=== PATIENT | male | born 1960 | race Caucasian/White ===

== ENCOUNTER 2025-05-13 15:14 | Outpatient (REF) | payer MEDICARE, SELFPAY ==
--- OUTSIDE RECORDS SUMMARY | 2025-05-13 15:19 | XMS_ITS | Clinical Summary ---
Author Organization [facility] Address [address] [place] [address] Care Team Providers Care Dispatcher Tugboat Name Role Phone Byron Santana MD Primary Care Provider [phone] Allergies Active Allergy Reactions Criticality Noted Date Comments Pravastatin 05/16/2021 Medications Medication Sig Dispensed Refills Start Date End Date Status metFORMIN (GLUCOPHAGE) tablet 1000 mg Take 1,000 mg by mouth 2 (two) times a day with meals. 0 Active atorvastatin (LIPITOR) tablet 10 mg Take 10 mg by mouth every evening. 0 Active ferrous sulfate 325 (65 FE) MG tablet Take 325 mg by mouth every morning with breakfast. 0 Active lisinopril (PRINIVIL,ZESTRIL) tablet 2.5 mg Take 2.5 mg by mouth daily. 0 Active glipiZIDE (GLUCOTROL XL) ER 24 hr tablet 10 mg Take 10 mg by mouth daily. 0 Active dulaglutide (TRULICITY) 1.5 MG/0.5ML subcutaneous pen-injector Inject 1.5 mg under the skin every 7 days. 0 Active aspirin EC 81 MG tablet Take 81 mg by mouth daily. 0 Active Active Problems Problem Noted Date Diagnosed Date Stage 3a chronic kidney disease 05/18/2021 Iron deficiency anemia due to chronic blood loss 08/30/2020 Nuclear sclerosis 08/12/2014 Overview: Taken from note of Dr. Wilson on 11/18/2012. Diabetes mellitus with renal complications 03/07 Overview: DP & PT pulses found by Dopplers 09/14/14 Urolithiasis 08/02/2011 Overview: Shaker; Calcium Oxalate, 07/24 Hypertriglyceridemia 09/22/2008 Tobacco use disorder 07/15/2007 Sleep apnea 10/19/2005 Overview: IMO update Family History Medical History Relation Name Comments Stroke Father Cancer Maternal Grandmother Diabetes Mother Heart failure Mother Kidney failure Mother Relation Name Status Comments Father (Age 84) Maternal Grandmother Mother (Age 93) Social History Tobacco Use Types Packs/Day Years Used Date Smoking Tobacco: Every Day Cigarettes 0.8 47 Smokeless Tobacco: Never Alcohol Use Standard Drinks/Week Comments Yes 0 (1 standard drink = 0.6 oz pur e alcohol) rarely Sex and Gender Information Value Date Recorded Sex Assigned at Not on file Gender Identity Not on file Sexual Orientation Not on file Job Start Date Occupation Industry Not on file Not on file Not on file Last Filed Vital Signs Vital Sign Reading Time Taken Comments Blood Pressure 119/90 08/28/2022 10:38 AM EST Pulse 71 08/28/2022 10:38 AM EST Temperature 36.4 C (97.5 F) 08/28/2022 10:38 AM EST Respiratory Rate - - Oxygen Saturation 99% 08/28/2022 10:38 AM EST Inhaled Oxygen Concentration - - Weight 83.6 kg (184 lb 3.2 oz) 08/28/2022 10:38 AM EST Height 177.8 cm (5' 10 ) 08/28/2022 10:38 AM EST Body Mass Index 26.43 08/28/2022 10:38 AM EST Plan of Treatment Health Maintenance Due Date Last Done Comments Hepatitis C Screening 1960 Lung Cancer Screening (Low Dose CT) 1958 COVID-19 Vaccine (#1) 05/13/1959 Depression Screening 1970 Preventative Health Evaluation 1976 Pneumococcal Vaccine (2 of 2 - PCV) 10/15/2003 10/15/2002 Colon Cancer Screening (Colonoscopy) 2003 Shingrix-Zoster Vaccine (1 of 2) 2008 DTap / Tdap / Td (2 - Td or Tdap) 07/15/2017 07/15/2007 Fall Risk Assessment 2023 Influenza Vaccine (#1) 2025 2, 10/27/2020, 12/16/2019, Additional history exists RSV Adult > 60+ Yrs or (1 - 1-dose 75+ series) 2033 Hepatitis B Vaccines Aged Out No long er eligible based on patient's age to complete this topic RSV Ped < 20 months Aged Out No longe r eligible based on patient's age to complete this topic Care Teams Dispatcher Tugboat Relationship Specialty Start Date End Date Byron Santana MD [address] [place] [id number] PCP - General Internal Medicine 05/18/21
--- OUTSIDE RECORDS SUMMARY | 2025-05-13 15:19 | XMS_ITS | Clinical Summary ---
Author Organization [facility] Address [address] [facility] [address] [place] [address] Phone Care Team Providers Care Boat Joiner Helper Name Role Phone Byron Monroy Primary Care Provider [phone] Allergies Active Allergy Reactions Criticality Noted Date Comments Pravastatin 05/16/2021 Medications lisinopril 2.5 MG tablet Take 2.5 mg by mouth 1 (one) time each day Active metFORMIN (GLUCOPHAGE) 1000 MG tablet Take 1,000 mg by mouth in the morning and 1,000 mg in the evening. Take with meals. Active glipiZIDE (GLUCOTROL XL) 10 MG 24 hr tablet Take 10 mg by mouth in the morning and 10 mg in the evening. Active atorvastatin (LIPITOR) 10 MG tablet Take 10 mg by mouth 1 (one) time each day in the evening Active ferrous sulfate 325 (65 Fe) MG tablet Take 325 mg by mouth 1 (one) time each day in the morning Active aspirin (ST MILAN) 81 MG EC tablet Take 81 mg by mouth 1 (one) time each day Active Dulaglutide 1.5 MG/0.5ML solution pen-injector Inject 1.5 mg under the skin 1 (one) time per week Active Active Problems Problem Noted Date Diagnosed Date Hypertension 09/29/2023 Dyslipidemia 09/29/2023 Stage 3a chronic kidney disease 05/18/2021 09/29/2023 Chronic iron deficiency anemia secondary to bloo d loss 08/30/2020 09/29/2023 Diabetes mellitus with renal complications 03/0709/29/2023 Overview (09/29/2023): DP & PT pulses found by Dopplers 09/14/14 Urolithiasis 08/02/2011 09/29/2023 Overview (09/29/2023): Shaker; Calcium Oxalate, 07/24 Tobacco user 07/15/2007 09/29/2023 Sleep apnea 10/19/2005 09/29/2023 Overview (09/29/2023): IMO update Family History Medical History Relation Comments Diabetes Brother Diabetes Father Stroke Father Cancer Maternal Grandmother Cataracts Mother Hypertension Mother Relation Status Comments Brother Father Maternal Grandmother Mother Social History Tobacco Use Types Packs/Day Years Used Date Smoking Tobacco: Every Day Cigarettes 0.8 53.6 Started: 1973 Smokeless Tobacco: Never Tobacco Cessation:Ready to Q uit: Not Asked; Counseling Given: Not Answered Alcohol Use Standard Drinks/Week Comments Yes 0 (1 standard drink = 0.6 oz pur e alcohol) Rarely Sex and Gender Information Value Date Recorded Sex Assigned at Not on file Legal Sex Male 10:41 AM EDT Gender Identity Not on file Sexual Orientation Not on file Last Filed Vital Signs Vital Sign Reading Time Taken Comments Blood Pressure 110/58 09/30/2023 8:31 AM EST Pulse 62 09/30/2023 8:31 AM EST Temperature - - Respiratory Rate - - Oxygen Saturation 95% 09/30/2023 8:31 AM EST Inhaled Oxygen Concentration - - Weight 82.5 kg (181 lb 12.8 oz) 09/30/2023 8:31 AM EST Height 180.3 cm (5' 11 ) 09/30/2023 8:31 AM EST Body Mass Index 25.36 09/30/2023 8:31 AM EST Plan of Treatment Health Maintenance Due Date Last Done Comments Pneumococcal Vaccine: 50+ Years (2 of 2 - PCV) 10/15/2003 10/15/2002 Colorectal Cancer Screening: Annual FOBT 2007 Colorectal Cancer Screening: Colonoscopy 2007 Colorectal Cancer Screening: Sigmoidoscopy 2007 Diabetes: Hemoglobin A1C 08/06/2023 Diabetes: Ophthalmology Exam 08/06/2023 09/20/2015, 11/18/2012, 10/30/2010, Additional history exists Diabetes: Pedal Pulse Checked 08/06/2023 Diabetes: Sensory Foot Exam 08/06/2023 Diabetes: Visual Foot Exam 08/06/2023 Influenza Vaccine (#1) 2025 , 07/02/2023, 10/27/2020, Additional history exists Pneumococcal Vaccine: Peds (0 to 5 Years) and At-Risk Patients (6 to 49 Years) Discontinued 10/15/2002 Hepatitis B Vaccine Aged Out No longe r eligible based on patient's age to complete this topic Insurance Medicare Medicare Care Teams Boat Joiner Helper Relationship Specialty Start Date End Date Eliana Byron [address] [place] [id number] PCP - General Internal Medicine 07/10/23
--- OUTSIDE RECORDS SUMMARY | 2025-05-13 15:19 | XMS_ITS ---
Author Name [facility] Organization Unknown Care Team Organization Name Specialty Phone Email Start Date End Da te [facility] Byron Santana Primary Care 10/22/2022 06/01/2024 [facility] Byron Santana Primary Care 08/21/2022 06/01/2024
--- NOTE | 2025-05-13 15:22 | EMG_ITS ---
Chief complaint: Pain in left scapular region, left trapezius, with numbness and tingling on left hand. 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 Reason for referral: Evaluate for Carpal Tunnel Syndrome versus radiculopathy Referred by: Dr. Hernandez Procedure done: Left upper extremity NCS/EMG Precautions and/or limitations: None The limb temperature was monitored continuously and remained between 32-36 degrees C during the performance of the NCS. Ulnar motor NCS was performed with moderate elbow flexion between 70-90 degrees, with across-elbow distance of 10 cm. Nerve Conduction Studies Anti Sensory Summary Table ?Stim Site NR Onset (ms) Norm Onset (ms) Peak (ms) Norm Peak (ms) O-P Amp (?V) Norm O-P Amp Site1 Site2 Delta-0 (ms) Dist (cm) John (m/s) Norm John (m/s) Left Median Anti Sensory (2nd Digit) Wrist NR <3.6 >10 Wrist 2nd Digit 14.0 Left Radial Anti Sensory (Thumb) Forearm ? 2.0 2.5 <3.1 24.7 Forearm Thumb 2.0 0.0 Left Ulnar Anti Sensory (5th Digit) Wrist ? 4.5 5.2 <3.7 6.3 >15.0 Wrist 5th Digit 4.5 14.0 31 Motor Summary Table ?Stim Site NR Onset (ms) Norm Onset (ms) O-P Amp (mV) Norm O-P Amp iAmp (mV) Amp (1st) (%) Site1 Site2 Delta-0 (ms) Dist (cm) John (m/s) Norm John (m/s) Left Median Motor (Abd Poll Brev) Wrist ? 7.3 <3.9 6.6 >4.5 8.0 100.0 Elbow Wrist 5.2 23.0 44 >45 Elbow ? 12.5 5.8 7.1 87.9 Left Ulnar Motor (Abd Dig Minimi) Wrist ? 5.0 <3.0 5.0 >5 6.4 100.0 B Elbow Wrist 4.2 23.0 55 >45 B Elbow ? 9.2 4.5 5.9 90.0 A Elbow B Elbow 2.4 10.0 42 >45 A Elbow ? 11.6 4.9 6.4 98.0 EMG ?Side Muscle Nerve Root Ins Act Fibs Psw Amp Dur Poly Recrt Int Pat Comment Left 1stDorInt Ulnar C8-T1 Nml Nml Nml Nml Nml 0 Nml Complete Left FlexCarpiUln Ulnar C8,T1 Nml Nml Nml Nml Nml 0 Nml Complete Left Biceps Musculocut C5-6 Nml Nml Nml Nml Nml 0 Nml Complete Left Triceps Radial C6-7-8 Nml Nml Nml Nml Nml 0 Nml Complete Left Deltoid Axillary C5-6 Nml Nml Nml Nml Nml 0 Nml Complete Paraspinal EMG ?Side Muscle Nerve Root Ins Act Fibs Psw Comment Left Cervical Upper Rami Nml Nml Nml Left Cervical Mid Rami Nml Nml Nml Left Cervical Lower Rami Nml Nml Nml FINDINGS: Left median motor nerve showed prolonged distal latency, normal amplitude and slow conduction velocity. Left ulnar motor nerve showed prolonged distal latency, normal amplitude and slow conduction velocity across the elbow. Left median sensory nerve showed absent response.. Left ulnar sensory nerve showed prolonged peak latency and small amplitude. All other nerves tested were within normal. Concentric needle EMG was performed in selected muscles of the left upper extremity and cervical paraspinals. Study did not reveal signs of electric abnormalities as shown in the table above. IMPRESSION: 1. This is an abnormal study. 2. There is electrodiagnostic evidence for left moderate-severe median neuropathy at the wrist, consistent with carpal tunnel syndrome. 3. There is electrodiagnostic evidence for left ulnar neuropathy at the elbow. 4. There is no electrodiagnostic evidence for brachial plexopathy or cervical radiculopathy. Thank you for your kind referral. Sole Ray MD, DONNA Board Certified, [place] [employer] and [employer] (ABPMR) Board Certified, [place] Board of Electrodiagnostic Medicine (ABEM) [facility] [id number] [facility]
== END 2025-05-13 15:15 | disposition home or self-care (01) ==
LOC: HO.NEURO 15:14
PROVIDERS: Visit Provider Physical Medicine & Rehabilitation
DX: G56.02 Carpal tunnel syndrome, left upper limb (principal); R20.0 Anesthesia of skin; R20.2 Paresthesia of skin
CPT/HCPCS: 95886; 95909

== ENCOUNTER → 2025-05-13 15:22 | Outpatient (BNV) | payer MEDICARE, SELFPAY | PROVIDERS: Visit Provider Physical Medicine & Rehabilitation | DX: G56.02 Carpal tunnel syndrome, left upper limb (principal); G56.22 Lesion of ulnar nerve, left upper limb | CPT/HCPCS: 95886; 95909 ==